=== PATIENT | male | born 1995 | race Caucasian/White ===

== ENCOUNTER 2016-09-06 19:45 | Emergency (ER) | payer BC ==
[2016-09-06 19:56] VITALS: RESP 16; TEMP 97.7
--- NOTE | 2016-09-06 20:20 | EDPHY ---
H & P Time Seen by Provider: 09/06/16 20:18 HPI/ROS: CHIEF COMPLAINT: HISTORY OF PRESENT ILLNESS: [Location, Duration, Severity, Quality, Context, Timing Modifying Factors, Associated S&S] REVIEW OF SYSTEMS: Constitutional: No fever, no chills Eyes: No visual changes ENT: No sore throat Respiratory: No cough, no shortness of breath Cardiac: No chest pain Gastrointestinal: No nausea, no vomiting, no abdominal pain Genitourinary: No hematuria, no dysuria Musculoskeletal: No leg pain or swelling Skin: No rash Neurological: No headache, no numbness, no weakness Psychiatric: No depression Adult Physical General Appearance: Alert, no distress Eyes: Pupils equal and round, no conjunctival pallor or injection ENT, Mouth: Mucous membranes moist Neck: Normal inspection Respiratory: Lungs are clear to auscultation Cardiovascular: Regular rate and rhythm Gastrointestinal: Abdomen is soft and non- tender Neurological: A&O, nonfocal, normal gait Skin: Warm and dry, no rash Extremities: Nontender, no pedal edema Psychiatric: Mood and affect normal Smoking Status: Current some day smoker Constitutional: Initial Vital Signs Temperature (C) 36.5 C 09/06/16 19:53 Heart Rate 111 H 09/06/16 19:53 Respiratory Rate 16 09/06/16 19:53 Blood Pressure 143/94 H 09/06/16 19:53 O2 Sat (%) 96 09/06/16 19:53 O2 Delivery Mode Room Air Allergies/Adverse Reactions: No Known Allergies Allergy (Unverified 09/06/16 19:52) Home Medications: Medication Instructions Recorded Dextroamphetamine Sulfate 09/06/16 Vyvanse 09/06/16 Report Scribed for: Alejandra Yates Report Scribed by: Jackie Lozano Date of Report: 09/06/16 Time of Report: 20:19 Physician Review and Approval Statement: 09/06/16 20:19 Portions of this note were transcribed by a biomedical specialist. I personally performed a history, physical exam, medical decision making, and confirmed accuracy of information the transcribed note.
--- NOTE | 2016-09-06 20:28 | EDPHY ---
H & P Time Seen by Provider: 09/06/16 20:18 HPI/ROS: CHIEF COMPLAINT: Chest pain HISTORY OF PRESENT ILLNESS: This patient is a 21 year old male with history of pneumothorax complaining of left-sided chest pain onset two days ago without provocation. His pain remained constant until last night, when it increased to severity 8/10 for about an hour. Since then, he reports that his pain has decreased to around 3/10, and that it waxes and wanes. He reports associated anxiety and fatigue. He denies cough, congestion, fever, headache, or abdominal pain. He states that he has felt depressed over the past couple months. He reports loss of appetite and weight loss of around 20lbs over the past two weeks. He was seen by his PCP last week for epididymitis and is currently taking Doxycycline. REVIEW OF SYSTEMS: Constitutional: +weight loss, +loss of appetite, No fever, no chills Eyes: No visual changes ENT: No sore throat Respiratory: No cough, no shortness of breath Cardiac: + left-sided chest pain Gastrointestinal: No nausea, no vomiting, no abdominal pain Genitourinary: No hematuria, no dysuria Musculoskeletal: No leg pain or swelling Skin: No rash Neurological: No headache, no numbness, no weakness Psychiatric: +depression Past Medical/Surgical History: Pneumothorax, ADHD, epididymitis Social History: [employer] student. Originally from [facility]. Denies alcohol use. Occasional marijuana use. Denies IV drug use. Smoking Status: Current some day smoker Physical Exam: General Appearance: Alert, no distress, very thin Eyes: Pupils equal and round, no conjunctival pallor or injection ENT, Mouth: Mucous membranes moist Neck: Normal inspection Respiratory: Lungs are clear to auscultation Cardiovascular: Regular rate and rhythm Gastrointestinal: Abdomen is soft and non- tender Neurological: A&O, nonfocal, normal gait Skin: Pale, Warm and dry, no rash Extremities: Nontender, no pedal edema Psychiatric: Mood and affect normal Constitutional: Initial Vital Signs Temperature (C) 36.5 C 09/06/16 19:53 Heart Rate 111 H 09/06/16 19:53 Respiratory Rate 16 09/06/16 19:53 Blood Pressure 143/94 H 09/06/16 19:53 O2 Sat (%) 96 09/06/16 19:53 O2 Delivery Mode Room Air Allergies/Adverse Reactions: No Known Allergies Allergy (Unverified 09/06/16 19:52) Home Medications: Medication Instructions Recorded Dextroamphetamine Sulfate 09/06/16 Vyvanse 09/06/16 Medical Decision Making - Diagnostics EKG Interpretation: EKG interpreted by me reveals normal sinus rhythm, rate 87, no ST/T changes. Imaging Results: CXR reviewed by me: [facility]: I viewed and interpreted images myself ED Course/Re-evaluation: This patient is a 21 year old male presenting today with left-sided chest pain onset two days ago. The pain waxes and wanes and was most severe last night, rated at 8/10. He has history of pneumothorax. Breath sounds are clear to auscultation. The patient is very thin and pale, but physical exam is otherwise unremarkable. Denies eating disorder. Plan to order EKG, chest x-ray, and labs including D-Dimer. EKG shows normal sinus rhythm. Chest x-ray reviewed and is normal. Plan to discharge home if lab results are normal. Return precautions discussed. The patient is comfortable with this plan. The patient will follow up with his primary care physician. Differential Diagnosis: Differential diagnosis includes though it is not limited to pneumonia, pneumothorax, pulmonary embolism, aortic dissection, pericarditis, acute coronary syndrome. - Data Points Laboratory Results: Laboratory Results 09/06/16 21:01 09/06/16 21:01 Departure - Departure Disposition: Home, Routine, Self-Care Clinical Impression: Atypical chest pain Condition: Good Instructions: Chest Pain (ED) Referrals: SURESH,UNKNOWN [Other] - As per Instructions Report Scribed for: Alejandra Yates Report Scribed by: Jackie Lozano Date of Report: 09/06/16 Time of Report: 20:39 Physician Review and Approval Statement: 09/06/16 20:39 Portions of this note were transcribed by a medical office supervisor. I personally performed a history, physical exam, medical decision making, and confirmed accuracy of information the transcribed note.
--- NOTE | 2016-09-06 20:34 | CPEKG ---
Heart Rate: 87 RR Interval: 690 P-R Interval: 168 QRSD Interval: 102 QT Interval: 372 QTC Interval: 448 P Fillmore: 78 QRS Fillmore: 103 T Wave Fillmore: 77 EKG Severity - BORDERLINE ECG - EKG Impression: SINUS RHYTHM EKG Impression: BORDERLINE RIGHT AXIS DEVIATION EKG Impression: INFERIOR Q WAVES, PROBABLY NORMAL VARIATION EKG Impression: VOLTAGE CRITERIA FOR LVH LIKELY SECONDARY TO PATIENT AGE BUT SEPTAL HYPERTROPHY EKG Impression: IS A POSSIBILITY Electronically Signed By: Bernardo Garg 07-Sep-2016 16:25:59
[2016-09-06 21:17] LABS: % IMMATURE GRANULYOCYTES 0.2 % (0.0-1.1); ABSOLUTE IMMATURE GRANULOCYTES 0.02 10^3/uL (0.00-0.10); ADD DIFF? NO; ADD MORPH? NO; ADD SCAN? NO; ATYPICAL LYMPHOCYTE FLAG 10 (0-99); FRAGMENT RBC FLAG 0 (0-99); HEMATOCRIT 45.8 % (40.0-51.0); HEMOGLOBIN 16.4 g/dL (13.7-17.5); LEFT SHIFT FLG 0 (0-99); LIPEMIA HEMOLYSIS FLAG 90 (0-99); MEAN CELL HEMOGLOBIN 29.6 pg (27.9-34.1); MEAN CELL HEMOGLOBIN CONCENTR. 35.8 g/dL (32.4-36.7); MEAN CELL VOLUME 82.7 fL (81.5-99.8); MEAN PLATELET VOLUME 9.3 fL (8.7-11.7); PLATELET CLUMPS FLAG 0 (0-99); PLATELET COUNT 313 10^3/uL (150-400); RED BLOOD CELL COUNT 5.54 10^6/uL (4.40-6.38); RED CELL DISTRIBUTION WIDTH 11.5 % (11.5-15.2)
[2016-09-06 21:29] LABS: ANION GAP 14 mEq/L (8-16); CALCIUM 9.9 mg/dL (8.5-10.4); CARBON DIOXIDE 25 mEq/l (22-31); CHLORIDE 102 mEq/L (97-110); CREATININE 0.9 mg/dL (0.7-1.3); GLOMERULAR FILTRATION RATE > 60; GLUCOSE 86 mg/dL (70-100); POTASSIUM 4.4 mEq/L (3.5-5.2); SODIUM 141 mEq/L (134-144)
[2016-09-06 21:53] VITALS: BP 117/80; PULSE 91; O2SAT 95
== END 2016-09-06 21:53 | disposition home or self-care (01) ==
DX: R07.89 Other chest pain (principal); F17.200 Nicotine dependence, unspecified, uncomplicated